=== PATIENT | female | born 1980 | race Caucasian/White ===

== ENCOUNTER 2020-10-31 15:06 | Observation (INO) ==
[2020-10-31] MEDS ORDERED: Dextrose 50% Syringe 50 ml 25 GM/50 ML SYRINGE IV PUSH PRN (17:30)
[2020-10-31] MEDS ORDERED: NS 0.9% 1000 ml BAG 1,000 ML IV SCH (17:45)
[2020-10-31] MEDS ORDERED: HYDROmorphone 0.5 MG/0.5 ML SYRINGE IV ONE (18:05)
[2020-10-31] MEDS ORDERED: diPHENhydraMINE IV 50 MG/ML 1 ml VIAL (BENADRYL) IV PRN (18:09)
[2020-10-31] MEDS ORDERED: diPHENhydraMINE IV 50 MG/ML 1 ml VIAL (BENADRYL) IV ONE (18:50)
[2020-10-31] MEDS: Enoxaparin 40 MG/0.4 ML SYR SUBCUT SCH (20:48)
[2020-10-31] MEDS: Pantoprazole VIAL 40 MG VIAL IV SCH (20:49)
[2020-11-01] MEDS: HYDROmorphone 0.5 MG/0.5 ML SYRINGE IV PRN ×2 (03:34→10:27)
[2020-11-01 05:00] LABS: ABS Eosinophils 0.1 10^3/ul (0-0.6); ABS Lymphocytes 1.7 10^3/ul (1.0-4.8); ABS Monocytes 0.3 10^3/ul (0-0.8); ABS Neutrophils 2.7 10^3/ul (1.5-7.7); Eosinophil % 1.6 %; Hematocrit 30 % (35-47); Hemoglobin 9.9 g/dL (12.0-16.0); Lymphocyte % 35.6 %; Mean Corpuscular HGB Conc 33 g/dL (31-36); Mean Corpuscular Hemoglobin 28 pg (27-31); Mean Corpuscular Volume 83 fL (80-97); Mean Platelet Volume 7.7 fL (7.4-10.4); Platelet Count 272 10^3/uL (150-450); Red Blood Count 3.58 10^6 /uL (3.70-4.87); Red Cell Distribution Width 15 % (10-15); White Blood Count 4.8 10^3/uL (3.5-10.8)
[2020-11-01 05:18] LABS: Calcium 8.1 mg/dL (8.6-10.3); EGFR African American 124.4 (>60); EGFR Non-African American 102.8 (>60); Potassium 3.4 mmol/L (3.5-5.0)
[2020-11-01] MEDS: Pantoprazole VIAL 40 MG VIAL IV SCH ×2 (09:07→20:12)
[2020-11-01] MEDS ORDERED: Potassium Chlor 20 meq TAB.ER PO ONE (10:12)
[2020-11-01] MEDS ORDERED: Naloxone 0.4 mg VIAL 0.4 mg/ml 1 ml VIAL IV PRN (10:19)
[2020-11-01] MEDS ORDERED: fentaNYL 100 mcg/2 ml 50 MCG/ML VIAL IV PRN (10:19)
[2020-11-01] MEDS ORDERED: HYDROcodone/ACETAMIN 5/325 mg TAB PO PRN (10:19)
[2020-11-01] MEDS ORDERED: Prochlorperazine 5 mg/ml 2 ml VIAL (10 mg) IV PRN (10:19)
[2020-11-01] MEDS ORDERED: Buffered Lidocaine 1% SYRIN 1 ml INTRADERM ONE (12:58)
[2020-11-01] MEDS ORDERED: Propofol 10 MG/ML 20 ML BTL ONE (13:32)
[2020-11-01] MEDS: Sucralfate 1 gm SUSP 1 GM/10 ML UDC PO SCH (18:06)
[2020-11-01] MEDS: Enoxaparin 40 MG/0.4 ML SYR SUBCUT SCH (20:12)
[2020-11-01] MEDS: Ondansetron 4 mg VIAL 2 MG/ML 2 ml VIAL IV PRN (20:12)
[2020-11-02] MEDS: HYDROmorphone 0.5 MG/0.5 ML SYRINGE IV PRN ×2 (03:31→07:53)
[2020-11-02] MEDS: Ondansetron 4 mg VIAL 2 MG/ML 2 ml VIAL IV PRN (04:03)
[2020-11-02 07:06] LABS: ABS Eosinophils 0.1 10^3/ul (0-0.6); ABS Lymphocytes 1.6 10^3/ul (1.0-4.8); ABS Monocytes 0.3 10^3/ul (0-0.8); ABS Neutrophils 2.7 10^3/ul (1.5-7.7); Eosinophil % 1.6 %; Hematocrit 29 % (35-47); Hemoglobin 9.8 g/dL (12.0-16.0); Lymphocyte % 34.1 %; Mean Corpuscular HGB Conc 33 g/dL (31-36); Mean Corpuscular Hemoglobin 28 pg (27-31); Mean Corpuscular Volume 82 fL (80-97); Mean Platelet Volume 7.9 fL (7.4-10.4); Platelet Count 265 10^3/uL (150-450); Red Blood Count 3.57 10^6 /uL (3.70-4.87); Red Cell Distribution Width 15 % (10-15); White Blood Count 4.6 10^3/uL (3.5-10.8)
[2020-11-02] MEDS: Sucralfate 1 gm SUSP 1 GM/10 ML UDC PO SCH (07:52)
[2020-11-02] MEDS: Pantoprazole VIAL 40 MG VIAL IV SCH (07:52)
[2020-11-02 07:58] VITALS: BP 104/52
== END 2020-11-02 11:25 | disposition home or self-care (01) ==
LOC: ED 15:06 → MEDTELE 15:06
PROVIDERS: ADMIT Internal Medicine; ATTEND Internal Medicine
PROC: O.GIEGD (2020-11-01 12:35)

== ENCOUNTER 2024-02-15 11:40 | Inpatient (IN) ==
[2024-02-15] MEDS: Ondansetron 4 mg VIAL 2 MG/ML 2 ml VIAL IV ONE (15:54)
[2024-02-15] MEDS: Pantoprazole VIAL 40 MG VIAL IV ONE (15:54)
[2024-02-15] MEDS: Morphine 4 MG/ML VIAL (1 ml) IV ONE ×2 (15:55→19:58)
[2024-02-15] MEDS: Lactated Ringers 1000 ml BAG 1,000 ML IV ONE (15:55)
[2024-02-15 16:06] LABS: Hematocrit 29.9 % (35-45); Hemoglobin 9.7 g/dL (11.5-14.3); Mean Corpuscular Hemoglobin 23.6 pg (27-33); Mean Corpuscular Hgb Conc 32.4 g/dL (31-36); Mean Corpuscular Volume 72.9 fL (80-97); Mean Platelet Volume 7.2 fL (7.5-11.2); Platelet Count 316 10^3/uL (150-450); Red Cell Distribution Width 16.1 % (12-17); White Blood Count 6.3 10^3/uL (3.8-11.8)
[2024-02-15 16:17] LABS: INR 1.12 (0.85-1.14)
[2024-02-15 16:42] LABS: ABS Basophils 0.1 10^3/uL (0.0-0.1); ABS Lymphocytes 2.8 10^3/uL (1.0-4.8); ABS Monocytes 0.4 10^3/uL (0.0-0.9); ALT 10 U/L (7-52); AST 14 U/L (13-39); Albumin 3.8 g/dL (3.2-5.2); Albumin/Globulin Ratio 1.4 (1-3); Alkaline Phosphatase 116 U/L (35-149); Anion Gap 6 mmol/L (2-16); Blood Urea Nitrogen 7 mg/dL (6-24); C Reactive Protein < 1.00 mg/L (<8.01); CO2 Carbon Dioxide 28 mmol/L (22-32); Calcium 8.7 mg/dL (8.6-10.3); Chloride 107 mmol/L (101-111); Creatinine, Serum 0.62 mg/dL (0.51-0.95); Eosinophil % 0.6 %; Globulin 2.8 g/dL (2-4); Glucose 94 mg/dL (70-100); Lipase 16 U/L (11.0-82.0); Lymphocyte % 44.7 %; Potassium 3.8 mmol/L (3.5-5.0); Sodium 141 mmol/L (135-145); Total Bilirubin 0.3 mg/dL (0.2-1.0); Total Protein 6.6 g/dL (6.4-8.9); eGFR CKD-EPI 113.2 (>60)
[2024-02-15 16:48] LABS: HCG Pregnancy < 0.60 mIU/mL
[2024-02-15] MEDS: Prochlorperazine 5 mg/ml 2 ml VIAL (10 mg) IV ONE (19:57)
[2024-02-15] MEDS: NS 0.9% 1000 ml BAG 1,000 ML IV SCH (22:29)
[2024-02-15] MEDS: Pantoprazole 80 mg in NS BAG 80 MG/250 ML BAG IV SCH (22:30)
[2024-02-15 22:56] LABS: TSH Ultra Thyroid Stim Horm < 0.01 mcIU/mL (0.34-5.60)
[2024-02-15 23:06] LABS: Hematocrit 26.4 % (35-45); Hemoglobin 8.5 g/dL (11.5-14.3)
[2024-02-16] MEDS: Morphine 2 MG/ML SYRINGE IV PRN (00:22)
[2024-02-16] MEDS: Ondansetron 4 mg VIAL 2 MG/ML 2 ml VIAL IV PRN ×2 (02:15→16:03)
[2024-02-16 06:55] LABS: Calcium 7.9 mg/dL (8.6-10.3); Creatinine, Serum 0.58 mg/dL (0.51-0.95); eGFR CKD-EPI 114.4 (>60)
[2024-02-16 07:09] LABS: ABS Lymphocytes 2.1 10^3/uL (1.0-4.8); ABS Monocytes 0.4 10^3/uL (0.0-0.9); ABS Neutrophils 1.6 10^3/uL (1.5-7.6); Eosinophil % 0.7 %; Hematocrit 27.9 % (35-45); Hemoglobin 8.8 g/dL (11.5-14.3); Lymphocyte % 50.6 %; Mean Corpuscular Hgb Conc 31.5 g/dL (31-36); Mean Corpuscular Volume 73.1 fL (80-97); Mean Platelet Volume 7.3 fL (7.5-11.2); Nucleated Red Blood Cells % 0.1 %/100WBC (0.0-0.8); Platelet Count 251 10^3/uL (150-450); Red Blood Count 3.82 10^6/uL (3.63-4.92); Red Cell Distribution Width 15.9 % (12-17); White Blood Count 4.2 10^3/uL (3.8-11.8)
[2024-02-16 07:16] LABS: Ferritin 2.5 ng/mL (11-307)
[2024-02-16] MEDS: Ferric Gluconate IV 250 MG in NS 0.9% 250 ml 200 ML IVPB SCH (09:55)
[2024-02-16] MEDS: Pantoprazole VIAL 40 MG VIAL IV SCH (12:25)
[2024-02-16] MEDS ORDERED: Midazolam 2 mg/2 ml VIAL 1 mg/ml 2 ml VIAL (2 mg) ONE (14:59)
[2024-02-16] MEDS ORDERED: Lidocaine 2% PF 5 ML VIAL ONE (15:32)
[2024-02-16] MEDS ORDERED: Ondansetron 4 mg VIAL 2 MG/ML 2 ml VIAL ONE (15:59)
[2024-02-16] MEDS: Dexamethasone IV 4 MG/ML VIAL 1 ml VIAL IV SLOW PU ONE (16:03)
[2024-02-16] MEDS ORDERED: Dexamethasone IV 4 MG/ML VIAL 1 ml VIAL ONE (16:03)
[2024-02-16] MEDS: Ondansetron 4 mg VIAL 2 MG/ML 2 ml VIAL IV ONE (16:03)
[2024-02-16] MEDS ORDERED: Naloxone 0.4 mg VIAL 0.4 mg/ml 1 ml VIAL IV PRN (16:07)
[2024-02-16] MEDS ORDERED: Buffered Lidocaine 1% SYRIN 1 ml INTRADERM ONE (16:07)
[2024-02-16] MEDS ORDERED: Scopolamine 1 mg/72hr PATCH TRANSDERM ONE (16:07)
[2024-02-16] MEDS ORDERED: NS 0.45% 1000 ml BAG 1,000 ML IV SCH (17:00)
[2024-02-16] MEDS ORDERED: Lactated Ringers 1000 ml BAG 1,000 ML IV SCH (17:00)
[2024-02-16 17:33] LABS: Hematocrit 29.4 % (35-45); Hemoglobin 9.5 g/dL (11.5-14.3)
[2024-02-17] MEDS: Lactated Ringers 1000 ml BAG 1,000 ML IV SCH (02:30)
[2024-02-17] MEDS: Pantoprazole VIAL 40 MG VIAL IV ONE (02:31)
[2024-02-17] MEDS: CMC:Omeprazole 20 mg CAP (NF) PO SCH (09:19)
[2024-02-17 09:50] LABS: ABS Lymphocytes 1.7 10^3/uL (1.0-4.8); ABS Monocytes 0.3 10^3/uL (0.0-0.9); ABS Neutrophils 3.3 10^3/uL (1.5-7.6); ABS Nucleated RBC 0.01 10^3/ul; Hematocrit 29.3 % (35-45); Hemoglobin 9.6 g/dL (11.5-14.3); Lymphocyte % 32.1 %; Mean Corpuscular Hemoglobin 23.6 pg (27-33); Mean Corpuscular Hgb Conc 32.7 g/dL (31-36); Mean Corpuscular Volume 72.2 fL (80-97); Mean Platelet Volume 7.4 fL (7.5-11.2); Nucleated Red Blood Cells % 0.1 %/100WBC (0.0-0.8); Platelet Count 325 10^3/uL (150-450); Red Blood Count 4.06 10^6/uL (3.63-4.92); Red Cell Distribution Width 15.8 % (12-17); White Blood Count 5.4 10^3/uL (3.8-11.8)
[2024-02-17 10:27] LABS: Anion Gap 7 mmol/L (2-16); Blood Urea Nitrogen 6 mg/dL (6-24); CO2 Carbon Dioxide 27 mmol/L (22-32); Calcium 8.9 mg/dL (8.6-10.3); Chloride 104 mmol/L (101-111); Creatinine, Serum 0.62 mg/dL (0.51-0.95); Glucose 120 mg/dL (70-100); Magnesium 1.6 mg/dL (1.9-2.7); Potassium 4.2 mmol/L (3.5-5.0); Sodium 138 mmol/L (135-145); eGFR CKD-EPI 112.5 (>60)
[2024-02-17 10:40] LABS: TSH Ultra Thyroid Stim Horm < 0.01 mcIU/mL (0.34-5.60)
[2024-02-17 11:33] LABS: Free T4 1.38 ng/dL (0.61-1.12)
[2024-02-17 11:36] LABS: Erythrocyte Sed Rate 24 mm/Hr (0-19)
[2024-02-17 11:37] LABS: Total T3 89 ng/dL (87-178)
[2024-02-17] MEDS: Magnesium Sulf 4 GM/100 ML IV 4,000 MG/100 ML BAG IVPB ONE (12:17)
[2024-02-17] MEDS: Morphine 2 MG/ML SYRINGE IV PRN (15:21)
[2024-02-18] MEDS: Iohexol 350 (CONTRAST) 500 ML MDV IV ONE (12:43)
[2024-02-18] MEDS: Lactated Ringers 1000 ml BAG 1,000 ML IV SCH (15:08)
[2024-02-19 06:43] LABS: Calcium 8.7 mg/dL (8.6-10.3); Creatinine, Serum 0.68 mg/dL (0.51-0.95); Magnesium 1.6 mg/dL (1.9-2.7); Potassium 4.5 mmol/L (3.5-5.0); eGFR CKD-EPI 110.1 (>60)
[2024-02-19 07:03] LABS: ABS Eosinophils 0.1 10^3/uL (0.0-0.5); ABS Lymphocytes 2.3 10^3/uL (1.0-4.8); ABS Monocytes 0.4 10^3/uL (0.0-0.9); ABS Neutrophils 1.7 10^3/uL (1.5-7.6); ABS Nucleated RBC 0.01 10^3/ul; Eosinophil % 1.3 %; Hematocrit 31.3 % (35-45); Hemoglobin 9.6 g/dL (11.5-14.3); Mean Corpuscular Hemoglobin 23.3 pg (27-33); Mean Corpuscular Hgb Conc 30.7 g/dL (31-36); Mean Corpuscular Volume 75.9 fL (80-97); Mean Platelet Volume 7.5 fL (7.5-11.2); Nucleated Red Blood Cells % 0.3 %/100WBC (0.0-0.8); Platelet Count 263 10^3/uL (150-450); Red Blood Count 4.12 10^6/uL (3.63-4.92); Red Cell Distribution Width 16.4 % (12-17); White Blood Count 4.5 10^3/uL (3.8-11.8)
[2024-02-19] MEDS: Iodixanol 320 (CONTRAST) 100 ML SDV IV ONE (08:13)
[2024-02-19] MEDS: Magnesium Sulfate 2 gm BAG 2 GM/50 ML BAG IVPB ONE (10:29)
[2024-02-19] MEDS: Magnesium Sulfate IV 1GM/100ML 1 GM/100 ML BAG IV ONE (11:40)
[2024-02-19] MEDS: Lactated Ringers 1000 ml BAG 1,000 ML IV SCH (15:42)
[2024-02-20] MEDS: Magnesium Sulfate 2 gm BAG 2 GM/50 ML BAG IVPB ONE (08:48)
[2024-02-20 09:34] LABS: Hematocrit 36.2 % (35-45); Hemoglobin 11.3 g/dL (11.5-14.3); Mean Corpuscular Hemoglobin 23.2 pg (27-33); Mean Corpuscular Hgb Conc 31.1 g/dL (31-36); Mean Corpuscular Volume 74.5 fL (80-97); Red Blood Count 4.86 10^6/uL (3.63-4.92); Red Cell Distribution Width 16.2 % (12-17); White Blood Count 6.7 10^3/uL (3.8-11.8)
[2024-02-20 10:12] LABS: ABS Basophils 0.1 10^3/uL (0.0-0.1); ABS Eosinophils 0.1 10^3/uL (0.0-0.5); ABS Lymphocytes 2.6 10^3/uL (1.0-4.8); ABS Monocytes 0.4 10^3/uL (0.0-0.9); ABS Neutrophils 3.6 10^3/uL (1.5-7.6); ABS Nucleated RBC 0.02 10^3/ul; Eosinophil % 1.1 %; Lymphocyte % 37.8 %; Mean Platelet Volume 7.6 fL (7.5-11.2); Nucleated Red Blood Cells % 0.3 %/100WBC (0.0-0.8); Platelet Count 218 10^3/uL (150-450)
[2024-02-20 10:24] LABS: Anion Gap 13 mmol/L (2-16); Blood Urea Nitrogen 4 mg/dL (6-24); CO2 Carbon Dioxide 21 mmol/L (22-32); Chloride 104 mmol/L (101-111); Creatinine, Serum 0.81 mg/dL (0.51-0.95); Glucose 83 mg/dL (70-100); Sodium 138 mmol/L (135-145); eGFR CKD-EPI 91.7 (>60)
[2024-02-20 12:23] LABS: Magnesium 2.9 mg/dL (1.9-2.7); Potassium Redraw 4.7 mmol/L (3.5-5.0)
[2024-02-20] MEDS: Magnesium Sulfate IV 1GM/100ML 1 GM/100 ML BAG IV ONE (13:13)
[2024-02-20] MEDS: Morphine 2 MG/ML SYRINGE IV PRN (15:03)
[2024-02-20] MEDS: Lactated Ringers 1000 ml BAG 1,000 ML IV SCH (18:10)
[2024-02-21 09:28] LABS: ABS Eosinophils 0.1 10^3/uL (0.0-0.5); ABS Monocytes 0.3 10^3/uL (0.0-0.9); ABS Neutrophils 3.1 10^3/uL (1.5-7.6); ABS Nucleated RBC 0.01 10^3/ul; Eosinophil % 1.5 %; Hematocrit 37.1 % (35-45); Hemoglobin 11.3 g/dL (11.5-14.3); Lymphocyte % 35.8 %; Mean Corpuscular Hemoglobin 23.1 pg (27-33); Mean Corpuscular Hgb Conc 30.5 g/dL (31-36); Mean Corpuscular Volume 75.8 fL (80-97); Nucleated Red Blood Cells % 0.1 %/100WBC (0.0-0.8); Platelet Count Platelets clumped. 10^3/uL (150-450); Red Blood Count 4.89 10^6/uL (3.63-4.92); Red Cell Distribution Width 16.4 % (12-17); White Blood Count 5.5 10^3/uL (3.8-11.8)
[2024-02-21 10:25] LABS: Anion Gap 6 mmol/L (2-16); Blood Urea Nitrogen 5 mg/dL (6-24); CO2 Carbon Dioxide 21 mmol/L (22-32); Calcium 9.2 mg/dL (8.6-10.3); Chloride 107 mmol/L (101-111); Creatinine, Serum 0.85 mg/dL (0.51-0.95); Glucose 93 mg/dL (70-100); Sodium 134 mmol/L (135-145); eGFR CKD-EPI 86.6 (>60)
[2024-02-21 12:13] LABS: Magnesium 1.8 mg/dL (1.9-2.7); Potassium Redraw 4.9 mmol/L (3.5-5.0)
[2024-02-21 12:38] LABS: Albumin/Globulin Ratio 1.4 (1-3); Calcium 9.2 mg/dL (8.6-10.3); Creatinine, Serum 0.86 mg/dL (0.51-0.95); Globulin 2.8 g/dL (2-4); Potassium 4.9 mmol/L (3.5-5.0); Total Bilirubin 0.3 mg/dL (0.2-1.0); Total Protein 6.8 g/dL (6.4-8.9); eGFR CKD-EPI 85.4 (>60)
[2024-02-21] MEDS: Magnesium Sulfate 2 gm BAG 2 GM/50 ML BAG IVPB ONE (14:08)
[2024-02-21] MEDS: Iohexol 350 (CONTRAST) 500 ML MDV IV ONE (17:50)
[2024-02-21] MEDS: Lactated Ringers 1000 ml BAG 1,000 ML IV SCH (21:06)
[2024-02-22] MEDS: Sucralfate 1 gm SUSP 1 GM/10 ML UDC PO SCH (16:40)
[2024-02-23 08:23] LABS: ABS Eosinophils 0.1 10^3/uL (0.0-0.5); ABS Lymphocytes 2.3 10^3/uL (1.0-4.8); ABS Monocytes 0.4 10^3/uL (0.0-0.9); ABS Nucleated RBC 0.01 10^3/ul; Eosinophil % 1.3 %; Hematocrit 36.8 % (35-45); Hemoglobin 11.7 g/dL (11.5-14.3); Lymphocyte % 39.2 %; Mean Corpuscular Hemoglobin 23.9 pg (27-33); Mean Corpuscular Hgb Conc 31.8 g/dL (31-36); Mean Corpuscular Volume 75.4 fL (80-97); Mean Platelet Volume 7.5 fL (7.5-11.2); Nucleated Red Blood Cells % 0.1 %/100WBC (0.0-0.8); Platelet Count 301 10^3/uL (150-450); Red Blood Count 4.88 10^6/uL (3.63-4.92); Red Cell Distribution Width 16.8 % (12-17); White Blood Count 5.8 10^3/uL (3.8-11.8)
[2024-02-23 09:01] LABS: Calcium 9.1 mg/dL (8.6-10.3); Creatinine, Serum 0.81 mg/dL (0.51-0.95); Magnesium 1.7 mg/dL (1.9-2.7); Potassium 4.2 mmol/L (3.5-5.0); eGFR CKD-EPI 91.7 (>60)
[2024-02-23] MEDS: Magnesium Sulfate 2 gm BAG 2 GM/50 ML BAG IVPB ONE (11:03)
[2024-02-24] MEDS: Lactated Ringers 1000 ml BAG 1,000 ML IV SCH (14:26)
[2024-02-24] MEDS: Sodium Phosphate ADULT ENEMA 133 ML BTL PR ONE (15:12)
[2024-02-24] MEDS: Ondansetron ODT 4 mg TAB 4 MG TAB SL PRN (19:10)
[2024-02-24] MEDS: Morphine 2 MG/ML SYRINGE IV PRN (20:57)
[2024-02-25 08:02] LABS: Calcium 8.6 mg/dL (8.6-10.3); Creatinine, Serum 0.74 mg/dL (0.51-0.95); Magnesium 1.7 mg/dL (1.9-2.7); Potassium 3.7 mmol/L (3.5-5.0); eGFR CKD-EPI 102.3 (>60)
[2024-02-25] MEDS: Magnesium Sulfate 2 gm BAG 2 GM/50 ML BAG IVPB ONE (09:04)
[2024-02-25 16:33] VITALS: BP 120/68
== END 2024-02-25 18:00 | disposition home or self-care (01) | DRG 241 ==
LOC: ED 11:40 → EDHOLD 11:40 → SUATTDRO 21:15 → MED 22:58 → SUATTDRO 02-16 12:00
PROVIDERS: ADMIT Internal Medicine; ATTEND Student in an Organized Health Care Education/Training Program
PROC: O.GIEGD (2024-02-16 14:50)